=== PATIENT | female | born 1985 | race Caucasian/White ===

== ENCOUNTER 2016-11-10 22:11 | Emergency (ER) | payer OTHER ==
[~2016-11-10] VITALS: Ht 162.6 cm; Wt 72.6 kg
[2016-11-10 23:17] LABS: PLATELET COUNT 377 x10^3mcL (130-400)
[2016-11-10 23:19] LABS: BASOPHIL % 0 % (0-2); RED CELL DISTRIBUTION WIDTH 14.7 % (11.5-14.5)
[2016-11-10 23:27] LABS: CALCIUM 8.1 mg/dL (8.5-10.1); CARBON DIOXIDE 24.7 mmol/L (21-32); CHLORIDE SERUM 107 mmol/L (98-107); CREATININE SERUM 0.8 mg/dL (0.6-1.0); GFR1 > 60 mL/min; GLUCOSE SERUM 156 mg/dL (74-106); SODIUM SERUM 141 mmol/L (136-145)
[2016-11-10 23:31] LABS: ALKALINE PHOSPHATASE 74 U/L (46-116); ALT/SGPT 15 U/L (14-59); AST/SGOT 17 U/L (15-37); BILIRUBIN TOTAL 0.43 mg/dL (0.20-1.00); LIPASE 136 IU/L (73-393); TOTAL PROTEIN, SERUM 6.4 g/dL (6.4-8.2)
[2016-11-10 23:33] LABS: ALBUMIN 3.3 g/dL (3.4-5.0)
[2016-11-11 01:12] LABS: PLATELET COUNT 382 x10^3mcL (130-400)
[2016-11-11 01:14] LABS: RED CELL DISTRIBUTION WIDTH 14.6 % (11.5-14.5)
[2016-11-11 01:59] LABS: BAND NEUTROPHIL 6 % (0-10); METAMYELOCTE 1 % (0-2); MONOCYTE 2 % (0-7); SEGMENTED NEUTROPHILS 85 % (37-75)
[2016-11-11 02:01] LABS: rbc morphology (normal/abnorm) NORMAL (NORMAL)
[2016-11-11 02:02] LABS: PLATELET MORPHOLOGY PLATELETS NORMAL
[2016-11-11 07:23] VITALS: BP 119/65
== END 2016-11-11 07:23 | disposition short-term general hospital (02) ==
LOC: ED 22:11
PROVIDERS: Emergency Medicine
DX: N99.821 Postprocedural hemorrhage of a genitourinary system organ or structure following other procedure (principal); R10.2 Pelvic and perineal pain; R42 Dizziness and giddiness; D64.9 Anemia, unspecified; N94.89 Other specified conditions associated with female genital organs and menstrual cycle; Z98.890 Other specified postprocedural states
CPT/HCPCS: J1885; J2270; J2405; J7030; Q9967